=== PATIENT | female | born 1990 | race African-American/Black ===

== ENCOUNTER 2016-06-23 18:32 | Emergency (ER) | payer OTHER ==
[~2016-06-23] VITALS: Ht 175.3 cm; Wt 79.4 kg
--- NOTE | ~2016-06-23 | EKG ---
[address] [address] ELECTROCARDIOGRAM REPORT Name: LANDRY SCHMIDT Room #: [facility] M.R.#: [id number] Admission: Attend Phys: Discharge: Date of : 89 Report #: [id number] THIS REPORT FOR: //name// [facility] ED Test Date: 2016-06-23 Test Time: 18:36:25 Pat Name: LANDRY SCHMIDT Department: Room: Gender: F Physician Specialist: MARISSA : 1990 Requested By: Kezia Gould Order Number: [id number] MD: Measurements Intervals [place] Rate: 86 P: 63 NC: 155 QRS: 44 QRSD: 98 T: 51 QT: 369 QTc: 442 Interpretive Statements Sinus rhythm Multiple ventricular premature complexes No previous ECG available for comparison [email or web address] By: 35 35 Epiphany EpiphanyMD /EPI
[2016-06-23 18:34] VITALS: BP 155/102
[2016-06-23 19:01] LABS: URINE BILIRUBIN NEGATIVE (Negative); URINE BLOOD NEGATIVE (Negative); URINE COLOR YELLOW; URINE GLUCOSE-RANDOM* NEGATIVE (Negative); URINE KETONES TRACE (Negative); URINE NITRITE NEGATIVE (Negative); URINE PROTEIN (DIPSTICK) NEGATIVE (Negative); URINE SPECIFIC GRAVITY >= 1.030 (1.003-1.035); URINE UROBILINOGEN 0.2 E.U./dl (0.2-1.0)
[2016-06-23 19:10] LABS: AMP/METHAMP Negative (Negative); BARBITURATES Negative (Negative); BENZODIAZEPINES Negative (Negative); COCAINE Negative (Negative); METHADONE Negative (Negative); OPIATES Negative (Negative); PCP Negative (Negative); THC Negative (Negative)
[2016-06-23 19:47] LABS: BASOPHILS 0.9 % (0.0-2.0); EOSINOPHILS 1.4 % (0.0-3.0); HEMATOCRIT 37.6 % (37.0-47.0); HEMOGLOBIN 12.3 gm/dL (12.0-15.0); MCH 26.3 pg (26.0-34.0); MCHC 32.8 g/dL (28.0-37.0); MCV 80.4 fL (80.0-100.0); PLATELET COUNT 279 thou/uL (150-400); POLYS 47.7 % (36.0-66.0); RBC 4.68 mil/uL (4.20-5.00); RDW 14.1 % (10.5-14.5); WBC 6.2 thou/uL (4.0-11.0)
[2016-06-23 19:48] LABS: CALCIUM 8.8 mg/dL (8.5-10.1); CREATININE 0.6 mg/dL (0.6-1.3); POTASSIUM 3.6 mmol/L (3.5-5.1)
[2016-06-23 19:50] LABS: MANUAL DIFF NO
[2016-06-23 19:53] LABS: ALBUMIN 3.6 g/dL (3.4-5.0); TOTAL BILIRUBIN 0.4 mg/dL (<0.1-1.0); TOTAL PROTEIN 7.6 g/dL (6.4-8.2)
== END 2016-06-23 21:10 | disposition home or self-care (01) ==
LOC: ER 18:32
PROVIDERS: Physician Assistant
DX: R00.2 Palpitations (principal)